=== PATIENT | male | born 1960 | race Caucasian/White ===

== ENCOUNTER 2016-11-23 11:10 | Inpatient (IN) | payer OTHER ==
[2016-11-23] VITALS (10 sets, daily range): BP systolic 101–201; BP diastolic 75–103; PULSE 74–92; RESP 16–20; TEMP 97.6–97.8; O2SAT 95–97
[~2016-11-23] VITALS: Ht 167.6 cm; Wt 111.3 kg
[~2016-11-23 11:10] MED LIST: ATOR1TAB18 PO; HYDR25TA5 PO; METO25TA3 PO; NIFE90TA2 PO
[2016-11-23] MEDS ORDERED: SODIUM CHLORIDE 0.9% FLUSH 10 ML FLUSH IVF PRN (11:30)
[2016-11-23] MEDS ORDERED: ASPIRIN 325 MG TAB PO ONE (11:30)
[2016-11-23] MEDS ORDERED: LIDOCAINE VISCOUS 2% SOLN 15 ML UDC PO ONE (11:30)
[2016-11-23] MEDS ORDERED: ONDANSETRON HCL 4 MG/2 ML VIAL IV ONE (11:30)
[2016-11-23] MEDS ORDERED: ALUMINUM/MAGNESIUM/SIMETH 30 ML CUP PO ONE (11:30)
--- NOTE | 2016-11-23 11:34 | PD ---
HPI Chief Complaint: Chest Pain Time Seen by Provider: 11:19 Travel History International Travel<30 days: No Contact w/Intl Traveler<30days: No Traveled to known affect area: No History of Present Illness HPI This patient complains of chest pain. Location is center sternum. Feels like a burning pressure. Started yesterday at 11 AM. Duration 24.5 hours. Severity is moderate. Symptoms are not exertional. No alleviating factors. Patient was seen here 8 months ago at the chest pain center and had a myocardial perfusion scan showing a small fixed defect but no active ischemia. PFSH Past Medical History Cardiovascular Problems: Yes (HTN) High Cholesterol: Yes Diabetes: No Diminished Hearing: No Immunizations Current: No Influenza Vaccination: No Past Surgical History Abdominal Surgery: Yes (UMBILICAL HERNIA REPAIR.) Appendectomy: Yes Cholecystectomy: Yes Tonsillectomy: Yes Social History Alcohol Use: Yes (VERY RARELY) Tobacco Use: No Substance Use: No Allergies-Medications (Allergen,Severity, Reaction): Uncoded Allergies: MUSHROOMS (Allergy, Unknown, Swelling, 12/04/05) Reported Meds & Prescriptions Reported Meds & Active Scripts Active Reported Nifedipine ER (Nifedipine) 90 Mg Tab 90 Mg PO DAILY Metoprolol Tartrate 25 Mg Tab 25 Mg PO BID Hydrochlorothiazide 25 Mg Tab 25 Mg PO DAILY Atorvastatin (Atorvastatin Calcium) 80 Mg Tab 80 Mg PO HS Review of Systems General / Constitutional: No: Fever Eyes: No: Visual changes HENT: No: Headaches Cardiovascular: Positive: Chest Pain or Discomfort Respiratory: No: Shortness of Breath Gastrointestinal: No: Abdominal Pain Genitourinary: No: Dysuria Musculoskeletal: No: Pain Skin: No Rash Neurologic: No: Weakness Psychiatric: No: Depression Endocrine: No: Polydipsia Hematologic/Lymphatic: No: Easy Bruising Physical Exam Narrative GENERAL: Well-nourished, well-developed patient in no apparent distress. SKIN: Focused skin assessment reveals no rash and nodules. Skin is Warm and dry. HEAD: Atraumatic. Normocephalic. EYES: Pupils equal and round. No scleral icterus. No injection or drainage. ENT: No nasal bleeding or discharge. Mucous membranes pink and moist. NECK: Trachea midline. No JVD. CARDIOVASCULAR: Regular rate and rhythm. No murmur appreciated. RESPIRATORY: No accessory muscle use. Clear to auscultation. Breath sounds equal bilaterally. GASTROINTESTINAL: Abdomen soft, some vague diffuse tenderness but this is quite different than his chest pain complaint, nondistended. Hepatic and splenic margins not palpable. MUSCULOSKELETAL: No obvious deformities. No clubbing. No cyanosis. No edema. NEUROLOGICAL: Awake and alert. No obvious cranial nerve deficits. Motor grossly within normal limits. Normal speech. PSYCHIATRIC: Appropriate mood and affect; insight and judgment normal. Data Data Last Documented VS Vital Signs Date Time Temp Pulse Resp B/P Pulse Ox O2 Delivery O2 Flow Rate FiO2 11/23/16 12:52 89 16 170/87 95 Room Air 11/23/16 11:11 97.6 Orders Ondansetron Inj (Zofran Inj) (11/23/16 11:30) Lidocaine 2% Viscous (Xylocaine 2% Visco (11/23/16 11:30) Al-Mag Hy-Si 40-40-4 Mg/Ml Liq (Mag-Al P (11/23/16 11:30) Aspirin (Aspirin) (11/23/16 11:30) Electrocardiogram (11/23/16 11:28) Basic Metabolic Panel (Bmp) (11/23/16 11:28) Ckmb (Isoenzyme) Profile (11/23/16 11:28) Complete Blood Count With Diff (11/23/16 11:28) Prothrombin Time / Inr (Pt) (11/23/16 11:28) Act Partial Throm Time (Ptt) (11/23/16 11:28) Troponin I (11/23/16 11:28) Chest, Single Ap (11/23/16 11:28) Ecg Monitoring (11/23/16 11:28) Iv Access Insert/Monitor (11/23/16 11:28) Oximetry (11/23/16 11:28) Sodium Chloride 0.9% Flush (Ns Flush) (11/23/16 11:30) CKMB (11/23/16 11:30) CKMB% (11/23/16 11:30) Admit Order (Ed Use Only) (11/23/16 13:56) Labs Laboratory Tests Test 11/23/16 11:30 White Blood Count 14.4 TH/MM3 Red Blood Count 5.41 MIL/MM3 Hemoglobin 15.8 GM/DL Hematocrit 46.2 % Mean Corpuscular Volume 85.3 FL Mean Corpuscular Hemoglobin 29.2 PG Mean Corpuscular Hemoglobin 34.2 % Concent Red Cell Distribution Width 13.9 % Platelet Count 262 TH/MM3 Mean Platelet Volume 7.5 FL Neutrophils (%) (Auto) 78.0 % Lymphocytes (%) (Auto) 13.4 % Monocytes (%) (Auto) 8.1 % Eosinophils (%) (Auto) 0.2 % Basophils (%) (Auto) 0.3 % Neutrophils # (Auto) 11.3 TH/MM3 Lymphocytes # (Auto) 1.9 TH/MM3 Monocytes # (Auto) 1.2 TH/MM3 Eosinophils # (Auto) 0.0 TH/MM3 Basophils # (Auto) 0.0 TH/MM3 CBC Comment DIFF FINAL Differential Comment Prothrombin Time 10.8 SEC Prothromb Time International 1.0 RATIO Ratio Activated Partial 25.9 SEC Thromboplast Time Sodium Level 136 MEQ/L Potassium Level 3.6 MEQ/L Chloride Level 103 MEQ/L Carbon Dioxide Level 21.3 MEQ/L Anion Gap 12 MEQ/L Blood Urea Nitrogen 21 MG/DL Creatinine 1.11 MG/DL Estimat Glomerular Filtration 68 ML/MIN Rate Random Glucose 237 MG/DL Calcium Level 9.1 MG/DL Total Creatine Kinase 139 U/L Creatine Kinase MB 4.9 NG/ML Troponin I 0.39 NG/ML [facility] Medical Decision Making Medical Screen Exam Complete: Yes Emergency Medical Condition: Yes Medical Record Reviewed: Yes Differential Diagnosis Differential diagnosis includes MO, angina, pericarditis, pleurisy, GERD, anxiety. Narrative Course I have reviewed the patient's electronic medical record. Reviewed his chest pain center hospitalization from 8 months ago. IV placed I reviewed the EKG which shows sinus rhythm without ectopy. Lead V2 looks a bit odd but certainly there is no STEMI criteria here. V1 and V3 show no ST elevation. I reviewed the chest x-ray Extended cardiac monitoring shows sinus rhythm without ectopy CBC shows some nonspecific leukocytosis Metabolic profile shows normal creatinine 1.1 CK is normal Troponin is elevated at 0.39 Coagulation studies shows INR 1.3 I gave him IV Zofran and GI cocktail and aspirin I have reevaluated the patient several times and he is still having some chest discomfort. Therefore I did a second EKG which is completely different and much more ominous than the first. It shows obvious anterior STEMI with 5-6 mm elevation in V3 and 4 and lesser degree and V5 and 6. I then called a STEMI alert and discussed with Dr. Robinson Emerson. This was a complex case is the STEMI was not evident upon arrival but developed during his ER course. He will take him emergently to the catheterization lab. I gave him heparin bolus and heparin drip and started nitroglycerin drip I accompanied him to the catheterization lab and when Dr. Emerson arrived I departed Critical Care Narrative Aggregate critical care time was 80 minutes. Time to perform other separately billable procedures was not included in the critical care time. My time did not include minutes spent treating any other patients simultaneously or on activities that did not directly contribute to the patient's treatment. The services I provided to this patient were to treat and/or prevent clinically significant deterioration that could result in: Cardiopulmonary arrest, cardiac arrhythmia, myocardial damage I provided critical care services requiring my management, as noted below: Chart data review, documentation time, medication orders and management, vital sign assessments/reviewing monitor data, ordering and reviewing lab tests, ordering and interpreting/reviewing x-rays and diagnostic studies, care of the patient and discussion of the patient with the admitting physicians. Diagnosis Primary Impression: STEMI (ST elevation myocardial infarction) Qualified Code: I21.02 - ST elevation myocardial infarction involving left anterior descending (LAD) coronary artery Admitting Information Admitting Physician Requests: Admit Herbie Herrera MD Nov 23, 2016 11:34
--- NOTE | 2016-11-23 11:42 | RADRPT ---
EXAM DATE/TIME: 11/23/2016 11:26 [facility] COMPARISON: CHEST SINGLE AP, April 17, 2016, 11:01. INDICATIONS : Chest pain MEDICAL HISTORY : Hypertension. SURGICAL HISTORY : None. ENCOUNTER: Initial ACUITY: 2 days PAIN SCORE: 5/10 LOCATION: chest FINDINGS: The lungs are clear without infiltrate, nodule, or mass. There is no appreciable pleural effusion fo r technique. Heart and mediastinum are unremarkable. CONCLUSION: No acute cardiopulmonary disease. Du Pitts MD on November 23, 2016 at 11:40 Board Certified Radiologist. This report was verified electronically.
[2016-11-23 12:00] LABS: AUTOMATED NEUTROPHIL # 11.3 TH/MM3 (1.8-7.7); BASOPHIL % 0.3 % (0.0-2.0); EOSINOPHIL % 0.2 % (0.0-4.0); HEMATOCRIT 46.2 % (39.0-51.0); HEMO FLAGS DIFF FINAL; LYMPH % 13.4 % (9.0-44.0); LYMPHOCYTE # 1.9 TH/MM3 (1.0-4.8); MEAN CELL VOLUME 85.3 FL (80.0-100.0); MEAN CORPUSCULAR HEMOGLOBIN 29.2 PG (27.0-34.0); MEAN CORPUSCULAR HGB CONC 34.2 % (32.0-36.0); MONO % 8.1 % (0.0-8.0); PLATELET COUNT 262 TH/MM3 (150-450); RED BLOOD COUNT 5.41 MIL/MM3 (4.50-5.90); RED CELL DISTRIBUTION WIDTH 13.9 % (11.6-17.2); WHITE BLOOD COUNT 14.4 TH/MM3 (4.0-11.0)
[2016-11-23 12:10] LABS: APTT (PATIENT) 25.9 SEC (24.3-30.1); PROTHROMBIN TIME - PATIENT 10.8 SEC (9.8-11.6)
[2016-11-23 12:18] LABS: ANION GAP 12 MEQ/L (5-15); BICARBONATE 21.3 MEQ/L (21.0-32.0); BLOOD UREA NITROGEN 21 MG/DL (7-18); CHLORIDE 103 MEQ/L (98-107); CREATINE KINASE 139 U/L (39-308); GLOMERULAR FILTRATION RATE 68 ML/MIN (>89); SODIUM (NA) 136 MEQ/L (136-145)
[2016-11-23 12:21] LABS: POTASSIUM 3.6 MEQ/L (3.5-5.1)
[2016-11-23 12:34] LABS: CKMB 4.9 NG/ML (0.5-3.6)
[2016-11-23] MEDS ORDERED: NITROGLYCERIN 0.4 MG SL 25 TABS/BTL SL PRN (14:00)
[2016-11-23] MEDS ORDERED: HEPARIN SODIUM - IV 10,000 UNITS/10 ML VIAL IV ONE (14:15)
[2016-11-23] MEDS ORDERED: NITROGLYCERIN-DEXTROSE INJ 250 ML IV ONE (14:15)
[2016-11-23] MEDS ORDERED: HEPARIN-D5W INJ 250 ML IV SCH (14:15)
[2016-11-23] MEDS ORDERED: NITROGLYCERIN-DEXTROSE INJ 250 ML ONE (14:16)
[2016-11-23 14:28] LABS: I-STAT POTASSIUM 3.4 MMOL/L (3.5-4.9)
--- NOTE | 2016-11-23 14:28 | RADRPT ---
EXAM DATE/TIME: 11/23/2016 14:05 [facility] COMPARISON: CHEST SINGLE AP, November 23, 2016, 11:26. INDICATIONS : STEMI alert. Chest pain. MEDICAL HISTORY : Hypertension. SURGICAL HISTORY : None. ENCOUNTER: Initial ACUITY: 2 days PAIN SCORE: 5/10 LOCATION: Bilateral chest FINDINGS: The lungs are clear without infiltrate, nodule, or mass. There is no appreciable pleural effusion fo r technique. Heart and mediastinum are unremarkable. CONCLUSION: No acute cardiopulmonary disease. Du Pitts MD on November 23, 2016 at 14:26 Board Certified Radiologist. This report was verified electronically.
[2016-11-23] MEDS ORDERED: HEPARIN-NS/PF INJ 500 ML ONE (14:38)
[2016-11-23] MEDS ORDERED: HEPARIN SODIUM - IV 10,000 UNITS/10 ML VIAL ONE (14:40)
[2016-11-23] MEDS ORDERED: PRASUGREL 10 MG TAB ONE (15:26)
[2016-11-23] MEDS ORDERED: TIROFIBAN INFUSION INJ 250 ML IV ONE (15:27)
[2016-11-23] MEDS ORDERED: IOHEXOL 350 MG/ML 100 ML BTL (for Cath Lab) OTHER ONE (15:36)
[2016-11-23] MEDS: TIROFIBAN INFUSION INJ 250 ML IV SCH (15:58)
[2016-11-23] MEDS ORDERED: NITROGLYCERIN-DEXTROSE INJ 250 ML IV SCH (16:00)
[2016-11-23] MEDS ORDERED: SODIUM CHLORIDE 0.9% FLUSH 10 ML FLUSH IV FLUSH PRN (16:00)
[2016-11-23] MEDS ORDERED: MISC INFORMATION XX ONE (16:00)
--- NOTE | 2016-11-23 16:08 | MB ---
cc: MORGAN FOX M.D. DATE OF CONSULTATION: 11/23/2016. REASON FOR CONSULTATION: HISTORY OF PRESENT ILLNESS: Jones is a very pleasant 48-year-old gentleman who developed severe chest pain beginning yesterday in the substernal area. It started at 11:00 a.m. yesterday. He otherwise denies any fever, chills, cough, GI or bleeding, orthopnea, syncope or dizziness. He does have significant dyspnea as well. He was seen in the chest pain center eight months ago and had a small fixed defect on the myocardial perfusion scan with no ischemia. PAST MEDICAL HISTORY: 1. Hypertension. 2. Hyperlipidemia. 3. Abdominal surgery. 4. Umbilical hernia repair. 5. Appendectomy. 6. Cholecystectomy. 7. Tonsillectomy. SOCIAL HISTORY: Rarely drinks alcohol. Denies tobacco use. ALLERGIES: MUSHROOMS. MEDICATIONS PRIOR TO ADMISSION: 1. Nifedipine ER 90 milligrams daily. 2. Metoprolol 25 twice a day. 3. Hydrochlorothiazide 25 daily. 4. Atorvastatin 80 at bedtime. MEDICATIONS GIVEN IN THE EMERGENCY ROOM: 1. IV heparin bolus and drip. 2. Aspirin 325 x1. PHYSICAL EXAMINATION: VITAL SIGNS: Blood pressure initially 201/98, prior to [place] the [place] [place] it was down to 150/75, pulse 74, respiratory rate 16, temperature 97.6. GENERAL: He is alert and oriented times three and in moderate to severe distress. NECK: The neck is supple. No jugular venous distention. No bruits. CARDIOVASCULAR EXAM: S1-S2. No murmurs, rubs or gallops. LUNGS: Clear to auscultation bilaterally. ABDOMEN: The abdomen is soft, nontender and nondistended with positive bowel sounds. EXTREMITIES: No lower extremity edema. EKGS: His EKG shows normal sinus rhythm at 80 beats per minute, anteroseptal T waves going out to V5 and V6. There is 7 mm of S-T segment elevation in Lead V4, V5 and V3, 1 in V2, 4 in V5 and 3 in V6. 1 mm of S-T elevation in lead I and aVL. He also has a left anterior fascicular block. LABS: White count 14.4, hemoglobin 15.8, Hematocrit 46.2, platelet count 262,000. Sodium 139, potassium 3.4, chloride 102, BUN 19, creatinine 1.11, glucose 200. Troponin is 0.39. CK 39. INR is 1.0. IMAGING STUDIES: Chest x-ray shows no acute cardiopulmonary disease. DIAGNOSES: He has the following diagnoses: 1. STEMI. 2. Subacute myocardial infarction with symptoms beginning 24 hours prior to admission and evidenced by the presence of anteroseptal T waves and Q waves out to lead V5, V6. 3. Hyperglycemia. 4. Hypertension. 5. Hyperlipidemia. 6. Dyspnea. DISCUSSION: STEMI alert has been called in the emergency room. The patient has received aspirin, heparin bolus and drip. The plan is for emergency left heart catheterization and revascularization mechanically with percutaneous coronary intervention. MD ARASELI Stearns/JCLester /3:49 PM /4:04 PM
[2016-11-23] MEDS ORDERED: METOPROLOL TARTRATE 25 MG TAB PO ONE (17:00)
[2016-11-23] MEDS ORDERED: FUROSEMIDE 20 MG/2 ML VIAL IV PUSH ONE (17:00)
[2016-11-23] MEDS ORDERED: PRASUGREL 10 MG TAB PO ONE (17:00)
[2016-11-23] MEDS ORDERED: SPIRONOLACTONE 25 MG TAB PO ONE (17:00)
[2016-11-23] MEDS ORDERED: ATORVASTATIN 80 MG TAB PO ONE (17:00)
[2016-11-23] MEDS: SPIRONOLACTONE 25 MG TAB PO SCH (17:15)
[2016-11-23] MEDS: FUROSEMIDE 20 MG/2 ML VIAL IV PUSH SCH (17:15)
--- NOTE | 2016-11-23 18:47 | EKG ---
Date Performed: 11/23/2016 Time Performed: 16:28:30 PTAGE: 56 years EKG: CONSIDER ACUTE ST ELEVATION IN Sinus rhythm with PAC(s) LATERAL INFARCT - POSSIBLY ACUTE Anteroseptal ST elevation, CONSIDER ACUTE INFAR CT Inferior ST changes are nonspecific Abnormal ECG PREVIOUS TRACING : 11/23/2016 14.02 Compared to previous tracing, anterolateral ST elevation po ssibly slightly improved. DOCTOR: Rancho Pugh Interpretating Date/Time 11/23/2016 18:46:26
--- NOTE | 2016-11-23 18:50 | EKG ---
Date Performed: 11/23/2016 Time Performed: 14:02:23 PTAGE: 56 years EKG: Sinus rhythm WITH SINUS ARRHYTHMIA POSSIBLE LEFT ATRIAL ENLARGEMENT LEFT AXIS DEVIATION ANTERIOR MYOCARDIAL INFAR CTION MARKED ST ELEVATION, CONSIDER ANTERIOR AND LATERAL INJURY ACUTE [place] PREVIOUS TRACING : 04/17/2016 11.29 Compared to previous tracing, anterior ST elevation has increased. DOCTOR: Rancho Pugh Interpretating Date/Time 11/23/2016 18:49:41
--- NOTE | 2016-11-23 18:55 | EKG ---
Date Performed: 11/23/2016 Time Performed: 11:28:52 PTAGE: 56 years EKG: Sinus rhythm WITH SINUS ARRHYTHMIA POSSIBLE LEFT ATRIAL ENLARGEMENT LEFT AXIS DEVIATION ANTERIOR MYOCARDIAL INFAR CTION, PROBABLY RECENT ABNORMAL ECG PREVIOUS TRACING : 11/23/2016 11.27 Compared to previous tracing, anterior ST elevation, anteri or infarct, age undetermined, is now evident. DOCTOR: Rancho Pugh Interpretating Date/Time 11/23/2016 18:53:50
[2016-11-23] MEDS ORDERED: HEPARIN SODIUM - IV 10,000 UNITS/10 ML VIAL IV PRN ×2 (20:15)
[2016-11-23] MEDS: SODIUM CHLORIDE 0.9% FLUSH 10 ML FLUSH IV FLUSH SCH (20:55)
[2016-11-23] MEDS: METOPROLOL TARTRATE 25 MG TAB PO SCH (20:56)
[2016-11-24] VITALS (27 sets, daily range): BP systolic 139–156; BP diastolic 89–98; PULSE 73–106; RESP 16–20; TEMP 97.2–99; O2SAT 94–99
[2016-11-24] MEDS: TIROFIBAN INFUSION INJ 250 ML IV SCH (00:28)
[2016-11-24] MEDS ORDERED: ACETAMINOPHEN 325 MG TAB PO ONE (04:00)
[2016-11-24] MEDS: METOPROLOL TARTRATE 25 MG TAB PO SCH (05:23)
[2016-11-24 06:34] LABS: AUTOMATED NEUTROPHIL # 14.9 TH/MM3 (1.8-7.7); BASOPHIL % 0.1 % (0.0-2.0); HEMATOCRIT 41.8 % (39.0-51.0); HEMO FLAGS DIFF FINAL; LYMPH % 6.3 % (9.0-44.0); LYMPHOCYTE # 1.1 TH/MM3 (1.0-4.8); MEAN CELL VOLUME 84.7 FL (80.0-100.0); MEAN CORPUSCULAR HEMOGLOBIN 29.4 PG (27.0-34.0); MEAN CORPUSCULAR HGB CONC 34.7 % (32.0-36.0); MONO % 7.4 % (0.0-8.0); NEUT % 86.2 % (16.0-70.0); PLATELET COUNT 252 TH/MM3 (150-450); RED BLOOD COUNT 4.94 MIL/MM3 (4.50-5.90); RED CELL DISTRIBUTION WIDTH 13.9 % (11.6-17.2); WHITE BLOOD COUNT 17.3 TH/MM3 (4.0-11.0)
[2016-11-24 06:57] LABS: BICARBONATE 24.9 MEQ/L (21.0-32.0); HDL CHOLESTEROL 43.2 MG/DL (40.0-60.0); MAGNESIUM 1.9 MG/DL (1.5-2.5); POTASSIUM 3.5 MEQ/L (3.5-5.1)
[2016-11-24 07:22] LABS: CKMB 268.2 NG/ML (0.5-3.6)
--- NOTE | 2016-11-24 08:03 | PD.CONS ---
History of Present Illness Service CT Surgery Consult Requested By Dr. Emerson Reason for Consult Multivessel CAD, Acute [place] Primary Care Physician Unknown Diagnoses: (1) STEMI (ST elevation myocardial infarction) (2) Chest pain (3) CAD (coronary artery disease) (4) CHF (congestive heart failure) History of Present Illness 56 y/o male presents with substernal chest pain at rest. He presented to the ED and was found to have anterior lead ST elevation with Q waves. A STEMI alert was called and he underwent emergent LHC by Dr. Emerson who placed 2 stents to open the infarct vessel, the LAD. He has since done well with no recurrent symptoms. He was loaded and is currently on prasugrel. Review of Systems Constitutional: COMPLAINS OF: Diaphoretic episodes, Fatigue, DENIES: Fever, Weight gain, Weight loss, Chills, Dizziness, Change in appetite, Night Sweats Endocrine: DENIES: Heat/cold intolerance, Polydipsia, Polyuria, Polyphagia Eyes: DENIES: Blurred vision, Diplopia, Eye inflammation, Eye pain, Vision loss , Photosensitivity, Double Vision Ears, nose, mouth, throat: DENIES: Tinnitus, Hearing loss, Vertigo, Nasal discharge, Oral lesions, Throat pain, Hoarseness, Ear Pain, Running Nose, Epistaxis, Sinus Pain, Toothache, Odynophagia Respiratory: DENIES: Apneas, Cough, Snoring, Wheezing, Hemoptysis, Sputum production, Shortness of breath Cardiovascular: COMPLAINS OF: Chest pain, Dyspnea on Exertion, DENIES: Palpitations, Syncope, PND, Lower Extremity Edema, Orthopnea, Claudication Gastrointestinal: DENIES: Abdominal pain, Black stools, Bloody stools, Constipation, Diarrhea, Nausea, Vomiting, Difficulty Swallowing, Anorexia Genitourinary: DENIES: Sexual dysfunction, Urinary frequency, Urinary incontinence, Urgency, Hematuria, Dysuria, Nocturia, Penile Discharge, Testicular Pain, Testicular Swelling Musculoskeletal: DENIES: Joint pain, Muscle aches, Stiffness, Joint Swelling, Back pain, Neck pain Integumentary: DENIES: Abnormal pigmentation, Nail changes, Pruritus, Rash Hematologic/lymphatic: DENIES: Bruising, Lymphadenopathy Immunologic/allergic: DENIES: Eczema, Urticaria Neurologic: DENIES: Abnormal gait, Headache, Localized weakness, Paresthesias, Seizures, Speech Problems, Tremor, Poor Balance Psychiatric: DENIES: Anxiety, Confusion, Mood changes, Depression, Hallucinations, Agitation, Suicidal Ideation, Homicidal Ideation, Delusions Past Family Social History Allergies: Uncoded Allergies: MUSHROOMS (Allergy, Unknown, Swelling, 12/04/05) Past Medical History HTN Active Ordered Medications Current Medications Medications (Trade) Dose Ordered Sig/Hayley Route Start Time Stop Time Status Last Admin (Nitrostat Sl) 0.4 mg Q5M PRN SL 11/23/16 14:00 (NS Flush) 2 ml UNSCH PRN IV FLUSH 11/23/16 16:00 (NS Flush) 2 ml BID IV FLUSH 11/23/16 21:00 11/24/16 09:21 (Aspirin Chew) 162 mg DAILY PO 11/24/16 09:00 11/24/16 09:19 (Effient) 10 mg DAILY PO 11/24/16 09:00 11/24/16 09:19 (Lipitor) 80 mg HS PO 11/24/16 21:00 (Lasix Inj) 20 mg BID@09,18 IV PUSH 11/23/16 18:00 11/24/16 09:20 (Aldactone) 50 mg BID PO 11/24/16 21:00 (Lopressor) 50 mg Q8HR PO 11/24/16 14:00 11/24/16 14:07 (Nitroglycerin 2% Oint) 1 inch Q6H TOPICAL 11/24/16 14:00 11/24/16 14:07 (Altace) 5 mg DAILY PO 11/25/16 09:00 (Mag-Ox) 400 mg Q12HR PO 11/24/16 21:00 Family History Positive for both parents having CAD and heart surgery Social History Denies tobacco or ETOH abuse Physical Exam Vital Signs Vital Signs Date Time Temp Pulse Resp B/P Pulse Ox O2 Delivery O2 Flow Rate FiO2 11/24/16 06:37 78 11/24/16 05:01 79 11/24/16 04:00 79 11/24/16 03:51 98.6 84 145/98 99 11/24/16 03:00 95 11/24/16 02:00 80 11/24/16 01:00 86 11/24/16 00:47 98.3 88 156/94 98 11/24/16 00:00 92 11/23/16 23:00 92 11/23/16 22:00 84 11/23/16 21:00 90 11/23/16 20:00 84 11/23/16 19:13 20 11/23/16 19:00 88 11/23/16 19:00 97.8 88 133/82 97 11/23/16 18:09 80 20 159/88 96 11/23/16 18:09 84 11/23/16 14:32 74 16 150/75 96 Nasal Cannula 2 11/23/16 14:09 77 20 169/103 97 Room Air 11/23/16 12:52 89 16 170/87 95 Room Air 11/23/16 11:11 97.6 83 20 201/98 96 Physical Exam GENERAL: This is a well-nourished, well-developed patient, in no apparent distress. SKIN: No rashes, ecchymoses or lesions. Cool and dry. HEAD: Atraumatic. Normocephalic. No temporal or scalp tenderness. EYES: Pupils equal round and reactive. Extraocular motions intact. No scleral icterus. No injection or drainage. ENT: Nose without bleeding, purulent drainage or septal hematoma. Throat without erythema, tonsillar hypertrophy or exudate. Uvula midline. Airway patent. NECK: Trachea midline. No JVD or lymphadenopathy. Supple, nontender, no meningeal signs. CARDIOVASCULAR: Regular rate and rhythm without murmurs, gallops, or rubs. RESPIRATORY: Clear to auscultation. Breath sounds equal bilaterally. No wheezes , rales, or rhonchi. GASTROINTESTINAL: Abdomen soft, non-tender, nondistended. No hepato-splenomegaly , or palpable masses. No guarding. MUSCULOSKELETAL: Extremities without clubbing, cyanosis, or edema. No joint tenderness, effusion, or edema noted. No calf tenderness. Negative Homans sign bilaterally. NEUROLOGICAL: Awake and alert. Cranial nerves II through XII intact. Motor and sensory grossly within normal limits. Five out of 5 muscle strength in all muscle groups. Normal speech. Laboratory Laboratory Tests Test 11/23/16 11/23/16 11/24/16 11:30 14:12 05:09 White Blood Count 14.4 17.3 Red Blood Count 5.41 4.94 Hemoglobin 15.8 14.5 Hematocrit 46.2 41.8 Mean Corpuscular Volume 85.3 84.7 Mean Corpuscular Hemoglobin 29.2 29.4 Mean Corpuscular Hemoglobin 34.2 34.7 Concent Red Cell Distribution Width 13.9 13.9 Platelet Count 262 252 Mean Platelet Volume 7.5 7.8 Neutrophils (%) (Auto) 78.0 86.2 Lymphocytes (%) (Auto) 13.4 6.3 Monocytes (%) (Auto) 8.1 7.4 Eosinophils (%) (Auto) 0.2 0.0 Basophils (%) (Auto) 0.3 0.1 Neutrophils # (Auto) 11.3 14.9 Lymphocytes # (Auto) 1.9 1.1 Monocytes # (Auto) 1.2 1.3 Eosinophils # (Auto) 0.0 0.0 Basophils # (Auto) 0.0 0.0 CBC Comment DIFF FINAL DIFF FINAL Differential Comment Prothrombin Time 10.8 Prothromb Time International 1.0 Ratio Activated Partial 25.9 Thromboplast Time Sodium Level 136 136 Potassium Level 3.6 3.5 Chloride Level 103 103 Carbon Dioxide Level 21.3 24.9 Anion Gap 12 8 Blood Urea Nitrogen 21 17 Creatinine 1.11 0.99 Estimat Glomerular Filtration 68 78 Rate Random Glucose 237 127 Calcium Level 9.1 8.7 Total Creatine Kinase 139 3980 Creatine Kinase MB 4.9 Troponin I 0.39 Bedside Hemoglobin 16.0 Bedside Hematocrit 47.0 Bedside Sodium 139 Bedside Potassium 3.4 Bedside Chloride 102 Bedside Blood Urea Nitrogen 19 Bedside Creatinine 0.9 Bedside Glucose 200 Magnesium Level 1.9 B-Type Natriuretic Peptide 321 Triglycerides Level 73 Cholesterol Level 194 LDL Cholesterol 136 HDL Cholesterol 43.2 Cholesterol/HDL Ratio 4.49 Result Diagram: 11/24/16 0509 11/24/16 0509 Imaging Last Impressions Chest X-Ray 11/23/16 1128 Signed Impressions: Service Date/Time: Wednesday, November 23, 2016 11:26 - CONCLUSION: No acute cardiopulmonary disease. Du Pitts MD Course Denies chest pain currently. Assessment and Plan Problem List: (1) STEMI (ST elevation myocardial infarction) Status: Acute (2) CAD (coronary artery disease) Status: Acute (3) CHF (congestive heart failure) Status: Acute Assessment and Plan 56 y/o male s/p completed anterior MN with anterior wall akinesis. Problem Qualifiers (1) STEMI (ST elevation myocardial infarction): Qualified Code: I21.02 - ST elevation myocardial infarction involving left anterior descending (LAD) coronary artery (2) Chest pain: (3) CAD (coronary artery disease): Qualified Code: I25.110 - Coronary artery disease involving [place] coronary artery of [place] heart with unstable angina pectoris (4) CHF (congestive heart failure): Qualified Code: I50.41 - Acute combined systolic and diastolic congestive heart failure Bernadine Santos MD Nov 24, 2016 08:03
--- NOTE | 2016-11-24 08:37 | EKG ---
Date Performed: 11/24/2016 Time Performed: 05:42:28 PTAGE: 56 years EKG: CONSIDER ACUTE ST ELEVATION [place] Sinus rhythm with PAC(s) Short MT interval ANTERIOR INFARCT - POSSIBLY ACUTE Lateral ST elevation, CONSID ER ACUTE INFARCT Abnormal ECG PREVIOUS TRACING : 11/23/2016 16.28 No significant change from previous tracing noted. DOCTOR: Rancho Pugh Interpretating Date/Time 11/24/2016 08:36:55
[2016-11-24] MEDS ORDERED: RAMIPRIL 2.5 MG CAP PO SCH (09:00)
[2016-11-24] MEDS: PRASUGREL 10 MG TAB PO SCH (09:19)
[2016-11-24] MEDS: SPIRONOLACTONE 25 MG TAB PO SCH (09:19)
[2016-11-24] MEDS: ASPIRIN 81 MG CHEW TAB PO SCH (09:19)
[2016-11-24] MEDS: FUROSEMIDE 20 MG/2 ML VIAL IV PUSH SCH ×2 (09:20→18:10)
[2016-11-24] MEDS: SODIUM CHLORIDE 0.9% FLUSH 10 ML FLUSH IV FLUSH SCH ×2 (09:21→20:58)
--- NOTE | 2016-11-24 10:21 | PD.CONS ---
HPI Service [facility] Consult Requested By Cardiology Reason for Consult Medical management Primary Care Physician Unknown Diagnoses: History of Present Illness 56-year-old man with a history of hypertension was admitted yesterday secondary and to ST elevation [place] and underwent left heart catheterization with Stent placed 2 to LAD. Yousif states, on Thursday around 11 AM he had severe substernal chest pain rated 10/10 in intensity associated with diaphoresis and shortness of breath, with radiation to bilateral upper extremities. Patient was brought to the ED in [place] and transferred to [facility] for [facility] patient is seen this morning and denies any chest pain. CTS was consulted secondary to multivessel CAD Review of Systems Except as stated in HPI: all other systems reviewed are Neg Past Family Social History Allergies: Uncoded Allergies: MUSHROOMS (Allergy, Unknown, Swelling, 12/04/05) Past Medical History Cardiovascular Problems: Yes (HTN) High Cholesterol: Yes Past Surgical History Abdominal Surgery: Yes (UMBILICAL HERNIA REPAIR.) Appendectomy: Yes Cholecystectomy: Yes Tonsillectomy: Yes Family History Both parents had CAD as well as open heart surgeries Father had diabetes type 2 Social History Alcohol Use: Yes (VERY RARELY) Tobacco Use: No Substance Use: No Physical Exam Vital Signs Vital Signs Date Time Temp Pulse Resp B/P Pulse Ox O2 Delivery O2 Flow Rate FiO2 11/24/16 07:30 73 11/24/16 07:30 98.7 73 20 139/97 96 11/24/16 06:37 78 11/24/16 05:01 79 11/24/16 04:00 79 11/24/16 03:51 98.6 84 145/98 99 11/24/16 03:00 95 11/24/16 02:00 80 11/24/16 01:00 86 11/24/16 00:47 98.3 88 156/94 98 11/24/16 00:00 92 11/23/16 23:00 92 11/23/16 22:00 84 11/23/16 21:00 90 11/23/16 20:00 84 11/23/16 19:13 20 11/23/16 19:00 88 11/23/16 19:00 97.8 88 133/82 97 11/23/16 18:09 80 20 159/88 96 11/23/16 18:09 84 11/23/16 14:32 74 16 150/75 96 Nasal Cannula 2 11/23/16 14:09 77 20 169/103 97 Room Air 11/23/16 12:52 89 16 170/87 95 Room Air 11/23/16 11:11 97.6 83 20 201/98 96 Physical Exam GENERAL: This is a well-nourished, well-developed patient, in no apparent distress. SKIN: No rashes, ecchymoses or lesions. Cool and dry. HEAD: Atraumatic. Normocephalic. No temporal or scalp tenderness. EYES: Pupils equal round and reactive. Extraocular motions intact. No scleral icterus. No injection or drainage. ENT: Nose without bleeding, purulent drainage or septal hematoma. Throat without erythema, tonsillar hypertrophy or exudate. Uvula midline. Airway patent. NECK: Trachea midline. No JVD or lymphadenopathy. Supple, nontender, no meningeal signs. CARDIOVASCULAR: Regular rate and rhythm without murmurs, gallops, or rubs. RESPIRATORY: Clear to auscultation. Breath sounds equal bilaterally. No wheezes , rales, or rhonchi. GASTROINTESTINAL: Abdomen soft, non-tender, nondistended. No hepato-splenomegaly , or palpable masses. No guarding. MUSCULOSKELETAL: Extremities without clubbing, cyanosis, or edema. No joint tenderness, effusion, or edema noted. No calf tenderness. Negative Homans sign bilaterally. NEUROLOGICAL: Awake and alert. Cranial nerves II through XII intact. Motor and sensory grossly within normal limits. Five out of 5 muscle strength in all muscle groups. Normal speech. Laboratory Laboratory Tests Test 11/23/16 11/23/16 11/24/16 11:30 14:12 05:09 White Blood Count 14.4 17.3 Red Blood Count 5.41 4.94 Hemoglobin 15.8 14.5 Hematocrit 46.2 41.8 Mean Corpuscular Volume 85.3 84.7 Mean Corpuscular Hemoglobin 29.2 29.4 Mean Corpuscular Hemoglobin 34.2 34.7 Concent Red Cell Distribution Width 13.9 13.9 Platelet Count 262 252 Mean Platelet Volume 7.5 7.8 Neutrophils (%) (Auto) 78.0 86.2 Lymphocytes (%) (Auto) 13.4 6.3 Monocytes (%) (Auto) 8.1 7.4 Eosinophils (%) (Auto) 0.2 0.0 Basophils (%) (Auto) 0.3 0.1 Neutrophils # (Auto) 11.3 14.9 Lymphocytes # (Auto) 1.9 1.1 Monocytes # (Auto) 1.2 1.3 Eosinophils # (Auto) 0.0 0.0 Basophils # (Auto) 0.0 0.0 CBC Comment DIFF FINAL DIFF FINAL Differential Comment Prothrombin Time 10.8 Prothromb Time International 1.0 Ratio Activated Partial 25.9 Thromboplast Time Sodium Level 136 136 Potassium Level 3.6 3.5 Chloride Level 103 103 Carbon Dioxide Level 21.3 24.9 Anion Gap 12 8 Blood Urea Nitrogen 21 17 Creatinine 1.11 0.99 Estimat Glomerular Filtration 68 78 Rate Random Glucose 237 127 Calcium Level 9.1 8.7 Total Creatine Kinase 139 3980 Creatine Kinase MB 4.9 268.2 Troponin I 0.39 Bedside Hemoglobin 16.0 Bedside Hematocrit 47.0 Bedside Sodium 139 Bedside Potassium 3.4 Bedside Chloride 102 Bedside Blood Urea Nitrogen 19 Bedside Creatinine 0.9 Bedside Glucose 200 Magnesium Level 1.9 Creatine Kinase MB % 6.7 B-Type Natriuretic Peptide 321 Triglycerides Level 73 Cholesterol Level 194 LDL Cholesterol 136 HDL Cholesterol 43.2 Cholesterol/HDL Ratio 4.49 Result Diagram: 11/24/16 0509 11/24/16 0509 Assessment and Plan Problem List: (1) STEMI (ST elevation myocardial infarction) ICD Code: I21.3 Status: Acute (2) CAD (coronary artery disease) ICD Code: I25.10 Status: Acute (3) Hypertension ICD Code: I10 Status: Acute (4) Hyperlipidemia ICD Code: E78.5 Status: Acute Assessment and Plan 56 year-old man with ST elevation [place] Status post left heart catheterization with cardiac stent placed 2 to LAD Continue Effient, aspirin, Lipitor, nitroglycerin, beta enoc, JOAQUIN inhibitor Management per cardiology Multivessel CAD Cardiothoracic surgery has been consulted for further evaluation Hypertension Currently on Lopressor 25 mg every 8 hour Hyperlipidemia Continue Lipitor 80 mg at bedtime Systolic CHF On Lasix IV 2 times a day, spironolactone, JOAQUIN inhibitor 2-D echo pending DVT prophylaxis: Effient Code Status Full code Discussed Condition With Patient Problem Qualifiers (1) STEMI (ST elevation myocardial infarction): Qualified Code: I21.02 - ST elevation myocardial infarction involving left anterior descending (LAD) coronary artery (2) CAD (coronary artery disease): Qualified Code: I25.110 - Coronary artery disease involving [place] coronary artery of [place] heart with unstable angina pectoris Brayan Cook MD Nov 24, 2016 10:21
[2016-11-24] MEDS: METOPROLOL TARTRATE 50 MG TAB PO SCH ×2 (14:07→22:35)
[2016-11-24] MEDS: NITROGLYCERIN 2% OINT 1 GM PACKET TOPICAL SCH ×2 (14:07→20:58)
[2016-11-24] MEDS ORDERED: MAGNESIUM OXIDE 400 MG TAB PO ONE (14:15)
--- NOTE | 2016-11-24 14:44 | PD.CARD.PN ---
Subjective Subjective Remarks alert in nad, chest pain only after eating Objective Vital Signs / I&O Vital Signs Date Time Temp Pulse Resp B/P Pulse Ox O2 Delivery O2 Flow Rate FiO2 11/24/16 11:30 80 11/24/16 11:30 98.5 80 20 156/93 96 11/24/16 07:30 73 11/24/16 07:30 98.7 73 20 139/97 96 11/24/16 06:37 78 11/24/16 05:01 79 11/24/16 04:00 79 11/24/16 03:51 98.6 84 145/98 99 11/24/16 03:00 95 11/24/16 02:00 80 11/24/16 01:00 86 11/24/16 00:47 98.3 88 156/94 98 11/24/16 00:00 92 11/23/16 23:00 92 11/23/16 22:00 84 11/23/16 21:00 90 11/23/16 20:00 84 11/23/16 19:13 20 11/23/16 19:00 88 11/23/16 19:00 97.8 88 133/82 97 11/23/16 18:09 80 20 159/88 96 11/23/16 18:09 84 I/O 11/23/16 11/23/16 11/23/16 11/24/16 11/24/16 11/24/16 07:00 15:00 23:00 07:00 15:00 23:00 Intake Total 480 ml Output Total 1400 ml Balance -920 ml Intake Oral 480 ml Output Urine Total 1400 ml Laboratory GENERAL: SKIN: Warm and dry. HEAD: Normocephalic. EYES: No scleral icterus. No injection or drainage. NECK: Supple, trachea midline. No JVD or lymphadenopathy. CARDIOVASCULAR: Regular rate and rhythm without murmurs, gallops, or rubs. RESPIRATORY: Breath sounds equal bilaterally. No accessory muscle use. GASTROINTESTINAL: Abdomen soft, non-tender, nondistended. MUSCULOSKELETAL: No cyanosis, or edema. BACK: Nontender without obvious deformity. No CVA tenderness. Laboratory Tests Test 11/24/16 11/24/16 05:09 11:10 White Blood Count 17.3 TH/MM3 Red Blood Count 4.94 MIL/MM3 Hemoglobin 14.5 GM/DL Hematocrit 41.8 % Mean Corpuscular Volume 84.7 FL Mean Corpuscular Hemoglobin 29.4 PG Mean Corpuscular Hemoglobin 34.7 % Concent Red Cell Distribution Width 13.9 % Platelet Count 252 TH/MM3 Mean Platelet Volume 7.8 FL Neutrophils (%) (Auto) 86.2 % Lymphocytes (%) (Auto) 6.3 % Monocytes (%) (Auto) 7.4 % Eosinophils (%) (Auto) 0.0 % Basophils (%) (Auto) 0.1 % Neutrophils # (Auto) 14.9 TH/MM3 Lymphocytes # (Auto) 1.1 TH/MM3 Monocytes # (Auto) 1.3 TH/MM3 Eosinophils # (Auto) 0.0 TH/MM3 Basophils # (Auto) 0.0 TH/MM3 CBC Comment DIFF FINAL Differential Comment Sodium Level 136 MEQ/L Potassium Level 3.5 MEQ/L Chloride Level 103 MEQ/L Carbon Dioxide Level 24.9 MEQ/L Anion Gap 8 MEQ/L Blood Urea Nitrogen 17 MG/DL Creatinine 0.99 MG/DL Estimat Glomerular Filtration 78 ML/MIN Rate Random Glucose 127 MG/DL Calcium Level 8.7 MG/DL Magnesium Level 1.9 MG/DL Total Creatine Kinase 3980 U/L Creatine Kinase MB 268.2 NG/ML Creatine Kinase MB % 6.7 % B-Type Natriuretic Peptide 321 PG/ML Triglycerides Level 73 MG/DL Cholesterol Level 194 MG/DL LDL Cholesterol 136 MG/DL HDL Cholesterol 43.2 MG/DL Cholesterol/HDL Ratio 4.49 RATIO Troponin I GREATER THAN 40.00 NG/ML Assessment and Plan Problem List: (1) CAD (coronary artery disease) (2) STEMI (ST elevation myocardial infarction) (3) CHF (congestive heart failure) (4) Hyperlipidemia (5) Hypertension (6) Acute electrocardiogram changes (7) Chest pain Assessment and Plan 1.) cad - assymptomatic except after eating, may be ischemic vs noncardiac, continue dapt, lipitor 80 hs, f/u Dr Santos consult, consider pci of rpda and/ or lpda 2.) Cardiomyopathy - on omt, lopressor 50 tid, altace 5 mg qd, aldactone 50 mg bid, lasix 20 mg bid Problem Qualifiers (1) CAD (coronary artery disease): Qualified Code: I25.110 - Coronary artery disease involving [place] coronary artery of [place] heart with unstable angina pectoris (2) STEMI (ST elevation myocardial infarction): Qualified Code: I21.02 - ST elevation myocardial infarction involving left anterior descending (LAD) coronary artery (3) CHF (congestive heart failure): Qualified Code: I50.41 - Acute combined systolic and diastolic congestive heart failure (4) Chest pain: Robinson Emerson MD Nov 24, 2016 14:44
[2016-11-24] MEDS: SPIRONOLACTONE 50 MG TAB PO SCH (20:58)
[2016-11-24] MEDS: MAGNESIUM OXIDE 400 MG TAB PO SCH (20:58)
[2016-11-24] MEDS ORDERED: ATORVASTATIN 80 MG TAB PO SCH (21:00)
[2016-11-25] VITALS (20 sets, daily range): BP systolic 122–153; BP diastolic 78–95; PULSE 66–86; RESP 16–20; TEMP 97.7–99.3; O2SAT 94–96
[2016-11-25] MEDS: NITROGLYCERIN 2% OINT 1 GM PACKET TOPICAL SCH ×3 (03:19→15:13)
[2016-11-25] MEDS: METOPROLOL TARTRATE 50 MG TAB PO SCH ×2 (06:36→15:13)
[2016-11-25 06:57] LABS: HEMATOCRIT 40.9 % (39.0-51.0); MEAN CELL VOLUME 84.8 FL (80.0-100.0); MEAN CORPUSCULAR HEMOGLOBIN 29.9 PG (27.0-34.0); MEAN CORPUSCULAR HGB CONC 35.2 % (32.0-36.0); PLATELET COUNT 199 TH/MM3 (150-450); RED BLOOD COUNT 4.82 MIL/MM3 (4.50-5.90); RED CELL DISTRIBUTION WIDTH 14.1 % (11.6-17.2); REVIEW FLAG FINAL; WHITE BLOOD COUNT 12.6 TH/MM3 (4.0-11.0)
[2016-11-25 07:19] LABS: BICARBONATE 31.7 MEQ/L (21.0-32.0); MAGNESIUM 2.4 MG/DL (1.5-2.5); POTASSIUM 3.9 MEQ/L (3.5-5.1)
[2016-11-25] MEDS: SPIRONOLACTONE 50 MG TAB PO SCH (08:47)
[2016-11-25] MEDS: FUROSEMIDE 20 MG/2 ML VIAL IV PUSH SCH (08:48)
[2016-11-25] MEDS: MAGNESIUM OXIDE 400 MG TAB PO SCH (08:48)
[2016-11-25] MEDS: PRASUGREL 10 MG TAB PO SCH (08:48)
[2016-11-25] MEDS: ASPIRIN 81 MG CHEW TAB PO SCH (08:49)
[2016-11-25] MEDS: SODIUM CHLORIDE 0.9% FLUSH 10 ML FLUSH IV FLUSH SCH (08:50)
[2016-11-25] MEDS ORDERED: RAMIPRIL 5 MG CAP PO SCH (09:00)
--- NOTE | 2016-11-25 10:53 | HHI.PR ---
Subjective Remarks Follow-up ST elevation [place]/multivessel CAD 11/25/16-patient seen and examined, denies any chest pain or shortness of breath. No acute event overnight. Objective Vitals Vital Signs Date Time Temp Pulse Resp B/P Pulse Ox O2 Delivery O2 Flow Rate FiO2 11/25/16 10:01 73 11/25/16 09:40 74 11/25/16 08:11 71 11/25/16 07:36 97.7 71 20 144/89 94 11/25/16 07:30 82 11/25/16 06:00 74 11/25/16 05:00 72 11/25/16 04:00 82 11/25/16 03:28 99.3 82 16 122/78 94 11/25/16 03:00 82 11/25/16 02:00 80 11/25/16 01:00 80 11/25/16 00:00 86 11/24/16 23:00 99.0 95 16 145/89 94 11/24/16 23:00 106 11/24/16 22:00 100 11/24/16 21:00 94 11/24/16 20:00 97.2 93 16 145/98 94 11/24/16 20:00 94 11/24/16 19:00 92 11/24/16 18:02 92 11/24/16 17:00 84 11/24/16 16:00 88 11/24/16 15:30 98.1 86 20 152/96 95 11/24/16 15:30 86 11/24/16 15:00 92 11/24/16 14:00 88 11/24/16 13:00 84 11/24/16 12:00 84 11/24/16 11:30 80 11/24/16 11:30 98.5 80 20 156/93 96 I/O 11/24/16 11/24/16 11/24/16 11/25/16 11/25/16 11/25/16 07:00 15:00 23:00 07:00 15:00 23:00 Intake Total 480 ml 935 ml 240 ml Output Total 1400 ml Balance -920 ml 935 ml 240 ml Intake Oral 480 ml 880 ml 240 ml IV Total 55 ml Output Urine Total 1400 ml # Voids 5 2 # Bowel Movements 0 Result Diagram: 11/25/16 0615 11/25/16 0615 Imaging Last Impressions Chest X-Ray 11/23/16 1128 Signed Impressions: Service Date/Time: Wednesday, November 23, 2016 11:26 - CONCLUSION: No acute cardiopulmonary disease. Du Pitts MD Objective Remarks GENERAL: NAD SKIN: Warm and dry. HEAD: Normocephalic. EYES: No scleral icterus. No injection or drainage. NECK: Supple, trachea midline. No JVD or lymphadenopathy. CARDIOVASCULAR: Regular rate and rhythm without murmurs, gallops, or rubs. RESPIRATORY: Breath sounds equal bilaterally. No accessory muscle use. GASTROINTESTINAL: Abdomen soft, non-tender, nondistended. MUSCULOSKELETAL: No cyanosis, or edema. BACK: Nontender without obvious deformity. No CVA tenderness. A/P Problem List: (1) STEMI (ST elevation myocardial infarction) ICD Code: I21.3 Status: Acute (2) CAD (coronary artery disease) ICD Code: I25.10 Status: Acute (3) Hypertension ICD Code: I10 Status: Acute (4) Hyperlipidemia ICD Code: E78.5 Status: Acute Assessment and Plan 56 year-old man with ST elevation [place] Status post left heart catheterization with cardiac stent placed 2 to LAD Continue Effient, aspirin, Lipitor, beta enoc, JOAQUIN inhibitor Management per cardiology Multivessel CAD Cardiothoracic surgery has been consulted for further evaluation Hypertension Currently on Lopressor 25 mg every 8 hour Hyperlipidemia Continue Lipitor 80 mg at bedtime Systolic CHF On Lasix IV 2 times a day, spironolactone, JOAQUIN inhibitor 2-D echo pending DVT prophylaxis: Effient Problem Qualifiers (1) STEMI (ST elevation myocardial infarction): Qualified Code: I21.02 - ST elevation myocardial infarction involving left anterior descending (LAD) coronary artery (2) CAD (coronary artery disease): Qualified Code: I25.110 - Coronary artery disease involving [place] coronary artery of [place] heart with unstable angina pectoris Brayan Cook MD Nov 25, 2016 10:53
[2016-11-25] MEDS ORDERED: NITR0.4S SL (15:18)
[2016-11-25] MEDS ORDERED: ASPI81CH25 PO (15:18)
[2016-11-25] MEDS ORDERED: PRAS10TA PO (15:18)
[2016-11-25] MEDS ORDERED: ALDA50TA2 PO (15:18)
[2016-11-25] MEDS ORDERED: RAMI5CAP PO (15:18)
[2016-11-25] MEDS ORDERED: FURO1TAB62 PO (15:18)
[2016-11-25] MEDS ORDERED: ATOR1TAB18 PO (15:18)
[2016-11-25] MEDS ORDERED: METO-309 PO (15:22)
[2016-11-25] MEDS ORDERED: ISOS30TA3 PO (15:22)
--- NOTE | 2016-11-25 15:23 | HHI.DS ---
Discharge Summary Admission Date Nov 23, 2016 at 13:59 Discharge Date: Nov 25, 2016 Admitting Diagnosis ACS (1) STEMI (ST elevation myocardial infarction) ICD Code: I21.3 Diagnosis: Principal (2) CAD (coronary artery disease) ICD Code: I25.10 (3) Hypertension ICD Code: I10 (4) Hyperlipidemia ICD Code: E78.5 Procedures Left heart catheterization with cardiac stent placed 2 Brief History - From Admission 56-year-old man with a history of hypertension was admitted yesterday secondary and to ST elevation [place] and underwent left heart catheterization with Stent placed 2 to LAD. Yousif states, on Thursday around 11 AM he had severe substernal chest pain rated 10/10 in intensity associated with diaphoresis and shortness of breath, with radiation to bilateral upper extremities. Patient was brought to the ED in and transferred to [facility] for [facility] patient is seen this morning and denies any chest pain. CTS was consulted secondary to multivessel CAD CBC/BMP: 11/25/16 0615 11/25/16 0615 Significant Findings Laboratory Tests Test 11/23/16 11/23/16 11/24/16 11/24/16 11:30 14:12 05:09 11:10 White Blood Count 14.4 TH/MM3 17.3 TH/MM3 (4.0-11.0) (4.0-11.0) Neutrophils (%) (Auto) 78.0 % 86.2 % (16.0-70.0) (16.0-70.0) Monocytes (%) (Auto) 8.1 % (0.0-8.0) Neutrophils # (Auto) 11.3 TH/MM3 14.9 TH/MM3 (1.8-7.7) (1.8-7.7) Monocytes # (Auto) 1.2 TH/MM3 1.3 TH/MM3 (0-0.9) (0-0.9) Blood Urea Nitrogen 21 MG/DL (7-18) Estimat Glomerular Filtration 68 ML/MIN (>89) 78 ML/MIN (>89) Rate Random Glucose 237 MG/DL 127 MG/DL (74-106) (74-106) Creatine Kinase MB 4.9 NG/ML 268.2 NG/ML (0.5-3.6) (0.5-3.6) Troponin I 0.39 NG/ML GREATER THAN (0.02-0.05) 40.00 NG/ML (0.02-0.05) Bedside Potassium 3.4 MMOL/L (3.5-4.9) Bedside Glucose 200 MG/DL (60-95) Lymphocytes (%) (Auto) 6.3 % (9.0-44.0) Total Creatine Kinase 3980 U/L (39-308) Creatine Kinase MB % 6.7 % (0.0-4.0) B-Type Natriuretic Peptide 321 PG/ML (0-100) LDL Cholesterol 136 MG/DL (0-99) Test 11/25/16 06:15 White Blood Count 12.6 TH/MM3 (4.0-11.0) Anion Gap 4 MEQ/L (5-15) Estimat Glomerular Filtration 67 ML/MIN (>89) Rate B-Type Natriuretic Peptide 313 PG/ML (0-100) Imaging Last Impressions Chest X-Ray 11/23/16 1128 Signed Impressions: Service Date/Time: Wednesday, November 23, 2016 11:26 - CONCLUSION: No acute cardiopulmonary disease. Du Pitts MD PE at Discharge GENERAL: NAD SKIN: Warm and dry. HEAD: Normocephalic. EYES: No scleral icterus. No injection or drainage. NECK: Supple, trachea midline. No JVD or lymphadenopathy. CARDIOVASCULAR: Regular rate and rhythm without murmurs, gallops, or rubs. RESPIRATORY: Breath sounds equal bilaterally. No accessory muscle use. GASTROINTESTINAL: Abdomen soft, non-tender, nondistended. MUSCULOSKELETAL: No cyanosis, or edema. BACK: Nontender without obvious deformity. No CVA tenderness. Hospital Course She admitted as a ST elevation [place] for which cardiology was consulted and he underwent left heart catheterization with cardiac stent placed to the LAD 2. Patient was treated with beta enoc, Lipitor, JOAQUIN inhibitor,Imdur, heparin drip. Cardiothoracic surgery was consulted however patient was continued on medical management. DVT and GI prophylaxis were provided. Patient was also treated for congestive heart failure with diuretics. Prior to discharge, patient's condition improved and vitals remained stable. Pt Condition on Discharge: Stable Discharge Disposition: Discharge Home Discharge Time: <= 30 minutes Discharge Instructions DIET: Follow Instructions for: Heart Healthy Diet Activities you can perform: Regular-No Restrictions Follow up Referrals: Cardiology PCP Follow-up - 1 Week New Medications: Furosemide (Lasix) 20 Mg Tab 20 MG PO BID Prevent Heart Failure #60 Ref 0 TAB Isosorbide Mononitrate ER (Isosorbide Mononitrate ER) 30 Mg Tom 30 MG PO DAILY Prevent Chest Pain #30 Ref 0 TAB Aspirin (Aspirin Low Strength) 81 Mg Chew 162 MG PO DAILY Prevent Blood Clot #30 EA Atorvastatin (Atorvastatin) 80 Mg Tab 80 MG PO HS Cholesterol Management #30 TAB Metoprolol Tartrate (Lopressor) 50 Mg Tab 50 MG PO Q8HR Blood Pressure Management #90 TAB Nitroglycerin SL (Nitrostat SL) 0.4 Mg Subl 0.4 MG SL Q5M PRN CHEST PAIN #30 MG Prasugrel (Effient) 10 Mg Tab 10 MG PO DAILY Prevent Blood Clot #30 TAB Ramipril (Ramipril) 5 Mg Cap 5 MG PO DAILY Blood Pressure Management #30 CAP Spironolactone (Aldactone) 50 Mg Tab 50 MG PO BID Prevent Heart Failure #60 TAB Continued Medications: Atorvastatin (Atorvastatin) 80 Mg Tab 80 MG PO HS Cholesterol Management #30 Ref 0 TAB Discontinued Medications: Metoprolol Tartrate (Metoprolol Tartrate) 25 Mg Tab 25 MG PO BID #60 Ref 0 TAB Brayan Cook MD Nov 25, 2016 15:23
--- NOTE | 2016-11-25 15:24 | PD.CARD.PN ---
Subjective Subjective Remarks c/o mild chest pain after eating, ow ambulating without symptoms Objective Vital Signs / I&O GENERAL: SKIN: Warm and dry. HEAD: Normocephalic. EYES: No scleral icterus. No injection or drainage. NECK: Supple, trachea midline. No JVD or lymphadenopathy. CARDIOVASCULAR: Regular rate and rhythm without murmurs, gallops, or rubs. RESPIRATORY: Breath sounds equal bilaterally. No accessory muscle use. GASTROINTESTINAL: Abdomen soft, non-tender, nondistended. MUSCULOSKELETAL: No cyanosis, or edema. BACK: Nontender without obvious deformity. No CVA tenderness. Vital Signs Date Time Temp Pulse Resp B/P Pulse Ox O2 Delivery O2 Flow Rate FiO2 11/25/16 14:55 79 11/25/16 13:22 78 11/25/16 12:51 77 11/25/16 11:33 97.8 75 19 139/82 96 11/25/16 11:33 81 11/25/16 10:01 73 11/25/16 09:40 74 11/25/16 08:11 71 11/25/16 07:36 97.7 71 20 144/89 94 11/25/16 07:30 82 11/25/16 06:00 74 11/25/16 05:00 72 11/25/16 04:00 82 11/25/16 03:28 99.3 82 16 122/78 94 11/25/16 03:00 82 11/25/16 02:00 80 11/25/16 01:00 80 11/25/16 00:00 86 11/24/16 23:00 99.0 95 16 145/89 94 11/24/16 23:00 106 11/24/16 22:00 100 11/24/16 21:00 94 11/24/16 20:00 97.2 93 16 145/98 94 11/24/16 20:00 94 11/24/16 19:00 92 11/24/16 18:02 92 11/24/16 17:00 84 11/24/16 16:00 88 11/24/16 15:30 98.1 86 20 152/96 95 11/24/16 15:30 86 I/O 7/24/17 7/24/17 7/24/17 7/25/17 7/25/17 7/25/17 07:00 15:00 23:00 07:00 15:00 23:00 Intake Total 480 ml 935 ml 240 ml Output Total 1400 ml Balance -920 ml 935 ml 240 ml Intake Oral 480 ml 880 ml 240 ml IV Total 55 ml Output Urine Total 1400 ml # Voids 5 2 # Bowel Movements 0 Laboratory Laboratory Tests Test 11/25/16 06:15 White Blood Count 12.6 TH/MM3 Red Blood Count 4.82 MIL/MM3 Hemoglobin 14.4 GM/DL Hematocrit 40.9 % Mean Corpuscular Volume 84.8 FL Mean Corpuscular Hemoglobin 29.9 PG Mean Corpuscular Hemoglobin 35.2 % Concent Red Cell Distribution Width 14.1 % Platelet Count 199 TH/MM3 Mean Platelet Volume 7.8 FL Sodium Level 139 MEQ/L Potassium Level 3.9 MEQ/L Chloride Level 103 MEQ/L Carbon Dioxide Level 31.7 MEQ/L Anion Gap 4 MEQ/L Blood Urea Nitrogen 18 MG/DL Creatinine 1.13 MG/DL Estimat Glomerular Filtration 67 ML/MIN Rate Random Glucose 104 MG/DL Calcium Level 9.1 MG/DL Magnesium Level 2.4 MG/DL B-Type Natriuretic Peptide 313 PG/ML Assessment and Plan Problem List: (1) CAD (coronary artery disease) (2) STEMI (ST elevation myocardial infarction) (3) CHF (congestive heart failure) (4) Hyperlipidemia (5) Hypertension (6) Acute electrocardiogram changes (7) Chest pain Assessment and Plan 1.) cad - mild chest pain after meals ow assymptomatic on ambulating halls, may be ischemic vs noncardiac, continue dapt, lipitor 80 hs, do not think rpda, lpda or om lesions are life threatening so pci would be for possible symptomatic relief, pt declines, d/w Dr Santos, not cabg candidate short term due to dapt, consider cabg or pci of rpda and/or lpda if symptoms owrsen as outpatient 2.) Cardiomyopathy - on omt, lopressor 50 tid, altace 5 mg qd, aldactone 50 mg bid, lasix 20 mg bid 3.) OK ok to dc from cv standpoint on omt, f/u with [facility], d/w patient, his and nursing staff. Problem Qualifiers (1) CAD (coronary artery disease): Qualified Code: I25.110 - Coronary artery disease involving [place] coronary artery of [place] heart with unstable angina pectoris (2) STEMI (ST elevation myocardial infarction): Qualified Code: I21.02 - ST elevation myocardial infarction involving left anterior descending (LAD) coronary artery (3) CHF (congestive heart failure): Qualified Code: I50.41 - Acute combined systolic and diastolic congestive heart failure (4) Chest pain: Robinson Emerson MD Nov 25, 2016 15:24
--- NOTE | 2016-11-25 16:13 | ECHRPT ---
Indication: Cardiomyopathy, unspecified CONCLUSIONS Mildly dilated left ventricle. Mild concentric left ventricular hypertrophy. The left ventricular systolic function is low normal with an estimated ejection fraction in the rang e of 50- 55%. There is apical hypokinesis with distinct regional wall motion abnormalities. Trace mitral valve regurgitation. Mitral annular calcification is present. BP: / HR: Rhythm: MEASUREMENTS (Male / Female) Normal Values Technical Quality: 2D ECHO LV Diastolic Diameter PLAX 4.6 cm 4.2 - 5.9 / 3.9 - 5.3 cm LV Systolic Diameter PLAX 3.6 cm IVS Diastolic Thickness 1.4 cm 0.6 - 1.0 / 0.6 - 0.9 cm LVPW Diastolic Thickness 1.0 cm 0.6 - 1.0 / 0.6 - 0.9 cm LV Relative Wall Thickness 0.5 RV Internal Dim ED PLAX 2.0 cm DOPPLER AV Peak Velocity 118.0 cm/s AV Peak Gradient 5.6 mmHg LVOT Peak Velocity 110.0 cm/s LVOT Peak Gradient 4.8 mmHg Mitral E Point Velocity 75.5 cm/s Mitral A Point Velocity 99.7 cm/s Mitral E to A Ratio 0.8 LV E' Lateral Velocity 7.1 cm/s Mitral E to LV E' Lateral Ratio 10.6 LV E' Septal Velocity 5.8 cm/s Mitral E to LV E' Septal Ratio 13.1 TR Peak Velocity 133.0 cm/s TR Peak Gradient 7.1 mmHg FINDINGS LEFT VENTRICLE Mildly dilated left ventricle. Mild concentric left ventricular hypertrophy. The left ventricular systolic function is low normal with an estimated ejection fraction in the rang e of 50- 55%. There is apical hypokinesis with distinct regional wall motion abnormalities. RIGHT VENTRICLE Normal right ventricular size and systolic function. LEFT ATRIUM The left atrial size is normal. RIGHT ATRIUM The right atrial size is normal. ATRIAL SEPTUM Normal atrial septal thickness without atrial level shunting by limited color doppler interrogation. AORTA The aortic root and proximal ascending aorta are normal in size on limited imaging. MITRAL VALVE Trace mitral valve regurgitation. Mitral annular calcification is present. AORTIC VALVE Trileaflet aortic valve. No aortic valve stenosis or regurgitation. TRICUSPID VALVE The estimated pulmonary arterial pressure is 12 mmHg. PULMONARY VALVE The pulmonary valve is not well visualized. VESSELS The inferior vena cava is normal in size. PERICARDIUM No pericardial effusion. Misbah Rushing MD, FACC (Electronically Signed) Final Date:25 November 2016 16:11
--- NOTE | 2016-11-26 07:01 | MA ---
cc: MORGAN FOX M.D. DATE 11/23/2016 PROCEDURE Left heart catheterization, left arteriography and coronary angiography, PCI with bare metal stent x 2 to the proximal/mid-LAD. INDICATIONS STEMI. Subacute myocardial infarction. Coronary artery disease. Hypertension, hyperlipidemia, hyperglycemia, multiple cardiac risk factors. PROCEDURE PERFORMED The patient was brought to the Cardiac Catheterization Laboratory, prepped and draped in the usual sterile fashion. 10 cc of 1% lidocaine was used to locally anesthetize the right common femoral artery. A 6-Azeri sheath was placed in the right common femoral artery. A 4-Azeri, JR-4 diagnostic catheter and a 6-Azeri XB 3.5 guide were used to perform left and right coronary angiography, left ventriculography and PCI of the LAD respectively. FINDINGS LV pressures 160/15-16. The ejection fraction is 30%. The anterior apical wall is severely hypokinetic to akinetic. The right coronary artery is large and dominant, has mild diffuse disease in the proximal/mid-segment up to 20% angiographically. The distal segment has a 20% stenosis. The right PDA has mild diffuse disease up to 10-20% angiographically. The right posterolateral artery is a medium-sized vessel with an ostial 90% stenosis followed by a proximal 90% stenosis. There appears to be MAGDEIL-2 to 3 flow into this vessel. The right PDA has a distal 90% stenosis, would estimate the vessel diameter at that point at 2-mm, maybe 2.25-mm. The left main coronary artery has no significant disease angiographically. The left circumflex vessel has mild diffuse disease in the proximal segment up to 20% angiographically. The first obtuse marginal vessel comes off the mid-AV groove, left circ and has mild diffuse disease up to 20% angiographically. The second obtuse marginal vessel has an ostial 60% stenosis, has early bifurcation. The more lateral branch has a proximal 60% stenosis. The more medial branch has an ostial 30% stenosis. These branches are probably to 2.5-mm in diameter. There is a distal posterolateral artery which has an ostial 95% stenosis. It is a relatively small vessel, probably 2.0 to 2.25-mm in diameter. The LAD has an ostial proximal 20% stenosis followed by a second 20% stenosis, then an occlusion after the second septal cigarette tester vessel. I do not see a diagonal vessel in this segment of the LAD suggesting this is a proximal occlusion. INTERVENTION A 0.014 [place] guidewire was used to cross the culprit proximal LAD stenosis. There was some subtle staining just beyond the stenosis; however, no flow into a discernible vessel. I then used a 2.0/15 Euphora balloon and performed three inflations of 9 atmospheres up to 20 seconds in the proximal/mid-LAD. There is then MAGDIEL-1 to 2 flow into the [id number] LAD, enough to see the diameter of the distal lesion. I then placed a 3.0/22 Integrity stent, one inflation, 10 atmospheres for 20 seconds. NOTE, at 9 atmospheres there was waist of the balloon in the proximal segment but the stent appeared to be fully deployed at 10 atmospheres. Stenosis went from 100% to 0% with MAGDIEL-3 flow. We then gave 200 mcg intracoronary Nipride and 100 mcg boluses for improved tissue perfusion. The LAD was transapical after imaging when the vessel is patent. There was a diagonal vessel just beyond the stent which is a small to medium-sized vessel, probably 2.25-mm in diameter with an ostial 95% stenosis and a proximal 70-80% stenosis. Just beyond this diagonal vessel there remained an 80% long, diffuse stenosis. I did think it was medically necessary to stent this so as to improve flow and minimize the amount of slow flow in the vessel, particularly given the 24-hour presentation after symptom onset and the presence of Q-waves. I suspected there was a lot of organized thrombus in the LAD. I then stented this segment with a 2.5/18 Integrity stent, one inflation at 10 atmospheres for 20 seconds. The stenosis went from 80% to 0% with MAGDIEL-3 flow. There was a residual 60-70% stenosis in the [id number] segment. I did not feel further stenting was a favorable risk to benefit ratio given the length of the proximal two stents and the amount of organized thrombus already present. Obviously it is an indeterminate situation. At this point in time I felt that the most reasonable thing to do would be to give Effient 60 mg p.o. load, then 10 mg daily, aspirin 162 daily. We started Aggrastat drip in the Lacquer Sizer. Note also, the patient's initial ACT was 179. An additional 3500 units of heparin was given. The second ACT was 220. 1500 units of a heparin was then given with a final ACT of 249. CONCLUSION 1. STEMI, culprit occluded proximal LAD as detailed above. 2. Otherwise severe three-vessel coronary artery disease as detailed above, notably in small to medium-sized diagonal vessel, obtuse marginal vessel, posterolateral artery on the left and posterolateral artery on the right and the distal right PDA, again as detailed above. 3. Severe LV systolic dysfunction at 30-35% with severe hypokinesis of the anteroapical wall. RECOMMENDATIONS 1. I recommend Effient 60 mg p.o. load, then 10 mg daily for 12-15 months, aspirin 162 mg daily, Aggrastat drip. Continue high-dose Lipitor at 80 mg at bedtime. Also continue beta enoc and initiate JOAQUIN inhibitor. 2. Discussion regarding the multiple other lesions. We will see how the patient responds clinically. 3. I will also get a CT Surgery consult to determine risks and benefits of CT surgery, although given the fact that the vessels are relatively small and the PDA lesion as distal, I am not quite sure how much this will benefit him clinically, but nonetheless will get a CT Surgery consult. 4. Could also consider high-risk PCI of these lesions but would only reserve this unless the patient has severe refractory ischemia to optimal medical therapy and he is not a candidate for CABG as most of these lesions involve ostial locations. NOTE ALSO, the patient was asked repeatedly whether he has a history of CVA and he said no. 5. We will also continue nitro drip with blood pressure titration. MD ARASELI Stearns/VIRGIL /3:53 PM /6:26 AM
== END 2016-11-25 16:56 | disposition home or self-care (01) | DRG 248 ==
LOC: NEPC 11:10 → NEDA 13:59 → HCIN 15:55
PROVIDERS: ADMIT Hospitalist; ATTEND Hospitalist
PROC: 02703EZ Dilation of Coronary Artery, One Artery with Two Intraluminal Devices, Percutaneous Approach (ICD-10-PCS; principal; 2016-11-23)
PROC: 4A023N7 Measurement of Cardiac Sampling and Pressure, Left Heart, Percutaneous Approach (ICD-10-PCS; 2016-11-23)
PROC: B2111ZZ Fluoroscopy of Multiple Coronary Arteries using Low Osmolar Contrast (ICD-10-PCS; 2016-11-23)
PROC: B2151ZZ Fluoroscopy of Left Heart using Low Osmolar Contrast (ICD-10-PCS; 2016-11-23)
DX: I21.09 ST elevation (STEMI) myocardial infarction involving other coronary artery of anterior wall (principal); I50.41 Acute combined systolic (congestive) and diastolic (congestive) heart failure; I42.9 Cardiomyopathy, unspecified; I11.0 Hypertensive heart disease with heart failure; I44.4 Left anterior fascicular block; E78.5 Hyperlipidemia, unspecified; R73.9 Hyperglycemia, unspecified; I25.110 Atherosclerotic heart disease of native coronary artery with unstable angina pectoris; E78.00 Pure hypercholesterolemia, unspecified; Z83.3 Family history of diabetes mellitus; Z82.49 Family history of ischemic heart disease and other diseases of the circulatory system
CPT/HCPCS: 71010; 80048; 80061; 82435; 82550; 82552; 82565; 82947; 83735; 83880; 84132; 84295; 84484; 84520; 85002; 85025; 85027; 85610; 85730; 92941; 93005; 93306; 93458; 96374; C1725; C1769; C1876; C1887; C1893; J1644; J1940; J2405; J3010; J3246; Q9967